=== PATIENT | female | born 1965 | race Caucasian/White ===

== ENCOUNTER 2017-08-30 17:20 | Emergency (ER) | payer OTHER ==
[~2017-08-30] VITALS: Ht 172.7 cm; Wt 70.0 kg
[~2017-08-30 17:20] MED LIST: RALO60TA PO
[2017-08-30] MEDS ORDERED: GABA300C10 PO (17:31)
[2017-08-30] MEDS ORDERED: BUPR-86 PO (17:31)
[2017-08-30] MEDS ORDERED: DOXY50CA42 PO (17:31)
[2017-08-30] MEDS ORDERED: ONDANSETRON ODT 4 MG PO ONE (18:30)
[2017-08-30] MEDS ORDERED: FAMOTIDINE 20 MG/2 ML IVPush ONE (18:30)
[2017-08-30] MEDS ORDERED: FAMOTIDINE 20 MG/2 ML ONE (18:36)
[2017-08-30] MEDS ORDERED: ONDANSETRON ODT 4 MG ONE (18:36)
[2017-08-30 18:40] VITALS: BP 108/56
== END 2017-08-30 19:59 | disposition home or self-care (01) ==
LOC: ED 19:45
DX: T78.40XA Allergy, unspecified, initial encounter (principal); R42 Dizziness and giddiness
CPT/HCPCS: 96374; 99284; Q0162; S0028

== ENCOUNTER → 2017-11-22 | Outpatient (CLI) | payer OTHER ==
[~2017-11-22] MED LIST changes: +BUPR-86 PO; +DOXY50CA42 PO; +GABA300C10 PO
== END | disposition home or self-care (01) ==
LOC: CFH 10:05
PROVIDERS: ATTEND Family Medicine
DX: N28.9 Disorder of kidney and ureter, unspecified (principal); R89.9 Unspecified abnormal finding in specimens from other organs, systems and tissues
CPT/HCPCS: 76770

== ENCOUNTER → 2018-09-05 | Outpatient (CLI) | payer OTHER | END | disposition home or self-care (01) | LOC: CFH 07:54 | PROVIDERS: ATTEND Family Medicine | DX: R10.9 Unspecified abdominal pain (principal); R74.8 Abnormal levels of other serum enzymes; V19.9XXD Pedal cyclist (driver) (passenger) injured in unspecified traffic accident, subsequent encounter | CPT/HCPCS: 76700 ==

== ENCOUNTER 2018-09-22 08:16 | Outpatient (CLI) | payer OTHER | END 2018-09-22 23:59 | disposition home or self-care (01) | LOC: CFH 08:16 | PROVIDERS: ATTEND Family Medicine | DX: S00.83XA Contusion of other part of head, initial encounter (principal); X58.XXXD Exposure to other specified factors, subsequent encounter | CPT/HCPCS: 70486 ==